=== PATIENT | male | born 1940 | race Caucasian/White ===

== ENCOUNTER → 2016-05-09 | Outpatient (CLI) | payer MEDICARE, OTHER ==
[2016-05-09 18:44] LABS: ALBUMIN 3.8 GM/DL (3.2-5.2); ALBUMIN/GLOBULIN RATIO 1.12 (1.00-1.93); BILIRUBIN,DIRECT 0.2 MG/DL (0.0-0.2); BILIRUBIN,TOTAL 0.6 MG/DL (0.2-1.0); TOTAL PROTEIN 7.2 GM/DL (6.4-8.2)
== END ==
LOC: M WUC 13:41
PROVIDERS: ATTEND Internal Medicine Gastroenterology
DX: R74.8 Abnormal levels of other serum enzymes (principal)

== ENCOUNTER → 2016-07-28 | Outpatient (CLI) | payer MEDICARE, OTHER ==
[2016-07-28 13:44] LABS: MEAN CORPUSCULAR HGB CONC 33.5 g/dl (32.0-36.5); MEAN CORPUSCULAR VOLUME 98.7 fl (80.0-96.0); RED CELL DISTRIBUTION WIDTH 12.9 % (11.5-14.5); WHITE BLOOD COUNT 3.7 K/mm3 (4.0-10.0)
[2016-07-28 14:40] LABS: ALKALINE PHOSPHATASE 71 U/L (45-117); ALT/SGPT 43 U/L (12-78); ANION GAP 5 MEQ/L (8-16); AST/SGOT 40 U/L (15-37); BILIRUBIN,TOTAL 0.6 MG/DL (0.2-1.0); BLOOD UREA NITROGEN 18 MG/DL (7-18); CALCIUM LEVEL 8.6 MG/DL (8.8-10.2); CARBON DIOXIDE LEVEL 31 MEQ/L (21-32); CHLORIDE LEVEL 106 MEQ/L (98-107); CREATININE FOR GFR 0.91 MG/DL (0.70-1.30); GLOMERULAR FILTRATION RATE > 60.0 (>42); GLUCOSE, FASTING 95 MG/DL (83-110); PHOSPHORUS LEVEL 3.7 MG/DL (2.5-4.9); POTASSIUM SERUM 4.5 MEQ/L (3.5-5.1); SODIUM LEVEL 142 MEQ/L (136-145)
[2016-07-28 14:41] LABS: ALBUMIN 3.7 GM/DL (3.2-5.2); ALBUMIN/GLOBULIN RATIO 1.19 (1.00-1.93); BILIRUBIN,DIRECT 0.1 MG/DL (0.0-0.2); CHOLESTEROL LEVEL 195 MG/DL (<200); TOTAL PROTEIN 6.8 GM/DL (6.4-8.2); TRIGLYCERIDES LEVEL 65 MG/DL (<150)
== END ==
LOC: M WUC 09:41
PROVIDERS: ATTEND Nurse Practitioner Family
DX: I25.10 Atherosclerotic heart disease of native coronary artery without angina pectoris (principal); I11.9 Hypertensive heart disease without heart failure; E78.2 Mixed hyperlipidemia

== ENCOUNTER → 2016-08-04 | Outpatient (CLI) | payer MEDICARE, OTHER ==
--- NOTE | 2016-08-04 10:55 | REP ---
MRCP: MRCP exam is accomplished utilizing multiple heavily T2-weighted sequences in the axial and coronal planes. MIP reconstruction images are performed. The gallbladder demonstrates no definite filling defect. There is no intrahepatic or extrahepatic biliary dilatation. The maximum diameter of the common bile duct is 4 mm. I see no evidence of stricture or filling defect in the common bile duct. The pancreatic duct is normal in caliber. No suspicious mass is seen in the visualized abdomen and there is no evidence of free fluid. There are peripelvic cysts in both kidneys as well as a cortical cyst in the lower pole of the right kidney, which measures approximately 2.8 cm in diameter. IMPRESSION: No biliary abnormality detected. Bilateral renal cysts. Signed by Heladio Phelps MD 08/04/2016 04:24 P
== END ==
LOC: M RAD 09:32
PROVIDERS: ATTEND Internal Medicine Gastroenterology
DX: R74.8 Abnormal levels of other serum enzymes (principal)

== ENCOUNTER → 2016-09-15 | Outpatient (CLI) | payer MEDICARE, OTHER ==
--- NOTE | 2016-09-15 15:22 | REP ---
Left hand four views: There is no fracture or dislocation. Mineralization is normal. 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 There are no calcifications or foreign bodies. Signed by Heladio Alvarez MD 09/15/2016 03:13 P
== END ==
LOC: M LRY 14:33
PROVIDERS: ATTEND Physician Assistant
DX: S63.259D Unspecified dislocation of unspecified finger, subsequent encounter (principal); X58.XXXA Exposure to other specified factors, initial encounter; Y92.89 Other specified places as the place of occurrence of the external cause; Y93.89 Activity, other specified; Y99.8 Other external cause status
CPT/HCPCS: 73130; G0463

== ENCOUNTER → 2016-09-29 | Outpatient (CLI) | payer MEDICARE, OTHER ==
--- NOTE | 2016-09-29 16:43 | REP ---
MRI LEFT HAND: Multiple sequences obtained in the axial, coronal and sagittal planes with images centered at the 4th digit. The patient has had prior dislocation at the metacarpophalangeal joint. There is arthritic change at the joint between the trapezium and base of 1st metacarpal with subchondral marrow edema and cystic changes. Small subchondral cyst is seen in the distal aspect of the first proximal phalanx. I do not see any other significant abnormal bone marrow signal. There is no occult fracture. There is no current dislocation. The flexor and extensor tendons of the 4th digit are intact without significant tenosynovitis. The collateral ligaments of the 4th digit appear intact. No fluid collection or ganglion cyst is seen. IMPRESSION: No evidence of tendon or ligament tear. No occult fracture. Scattered arthritic changes. Signed by Heladio Phelps MD 09/30/2016 05:03 P
== END ==
LOC: M RAD 13:15
PROVIDERS: ATTEND Internal Medicine Gastroenterology
DX: S61.412D Laceration without foreign body of left hand, subsequent encounter (principal); S63.259D Unspecified dislocation of unspecified finger, subsequent encounter; X58.XXXA Exposure to other specified factors, initial encounter; Y92.89 Other specified places as the place of occurrence of the external cause; Y93.89 Activity, other specified; Y99.8 Other external cause status

== ENCOUNTER → 2016-11-26 | Outpatient (REF) | payer MEDICARE, OTHER ==
[2016-11-26 13:57] LABS: PERCENT SATURATION 37.7 % (19.7-50.0)
== END ==
LOC: M LAB REF 12:47 → M LABWUC 12:47
PROVIDERS: ATTEND Internal Medicine Gastroenterology
DX: R74.8 Abnormal levels of other serum enzymes (principal)

== ENCOUNTER → 2016-11-26 | Outpatient (REF) | payer MEDICARE, OTHER ==
[2016-11-26 13:30] LABS: MEAN CORPUSCULAR HEMOGLOBIN 32.6 pg (27.0-33.0); MEAN CORPUSCULAR HGB CONC 33.1 g/dl (32.0-36.5); MEAN CORPUSCULAR VOLUME 98.4 fl (80.0-96.0); RED CELL DISTRIBUTION WIDTH 12.9 % (11.5-14.5); WHITE BLOOD COUNT 4.4 10^3/uL (4.0-10.0)
[2016-11-26 13:57] LABS: ALBUMIN 3.9 GM/DL (3.2-5.2); ALBUMIN/GLOBULIN RATIO 1.18 (1.00-1.93); ALKALINE PHOSPHATASE 77 U/L (45-117); ALT/SGPT 149 U/L (12-78); ANION GAP 6 MEQ/L (8-16); AST/SGOT 127 U/L (15-37); BILIRUBIN,DIRECT 0.2 MG/DL (0.0-0.2); BILIRUBIN,TOTAL 0.6 MG/DL (0.2-1.0); BLOOD UREA NITROGEN 20 MG/DL (7-18); CALCIUM LEVEL 8.8 MG/DL (8.8-10.2); CARBON DIOXIDE LEVEL 31 MEQ/L (21-32); CHLORIDE LEVEL 104 MEQ/L (98-107); CHOLESTEROL LEVEL 176 MG/DL (<200); CREATININE FOR GFR 0.85 MG/DL (0.70-1.30); GLOMERULAR FILTRATION RATE > 60.0 (>42); GLUCOSE, FASTING 101 MG/DL (83-110); PHOSPHORUS LEVEL 3.7 MG/DL (2.5-4.9); POTASSIUM SERUM 4.5 MEQ/L (3.5-5.1); SODIUM LEVEL 141 MEQ/L (136-145); TOTAL PROTEIN 7.2 GM/DL (6.4-8.2); TRIGLYCERIDES LEVEL 57 MG/DL (<150)
== END ==
LOC: M LABWUC 12:41 → M LAB REF 12:41
PROVIDERS: ATTEND Nurse Practitioner Family
DX: I11.9 Hypertensive heart disease without heart failure (principal); I25.10 Atherosclerotic heart disease of native coronary artery without angina pectoris; E78.2 Mixed hyperlipidemia; R74.8 Abnormal levels of other serum enzymes

== ENCOUNTER → 2016-12-20 | Outpatient (REF) | payer MEDICARE, OTHER | LOC: M SFHCLERA 15:30 | PROVIDERS: ATTEND Physician Assistant | DX: N52.9 Male erectile dysfunction, unspecified (principal) | CPT/HCPCS: 84402; 84403; G0103; G0463 ==

== ENCOUNTER → 2017-01-19 | Outpatient (CLI) | payer MEDICARE, OTHER ==
[2017-01-19 11:48] LABS: ALBUMIN 3.8 GM/DL (3.2-5.2); ALBUMIN/GLOBULIN RATIO 1.09 (1.00-1.93); BILIRUBIN,DIRECT 0.1 MG/DL (0.0-0.2); BILIRUBIN,TOTAL 0.4 MG/DL (0.2-1.0); TOTAL PROTEIN 7.3 GM/DL (6.4-8.2)
== END ==
LOC: M LRY 09:30
PROVIDERS: ATTEND Nurse Practitioner Family
DX: E78.2 Mixed hyperlipidemia (principal); R94.5 Abnormal results of liver function studies

== ENCOUNTER → 2017-03-09 | Outpatient (CLI) | payer MEDICARE, OTHER | LOC: M LRY 09:16 | DX: R94.5 Abnormal results of liver function studies (principal) | CPT/HCPCS: 36415; 80076 ==

== ENCOUNTER → 2017-03-09 | Outpatient (REF) | payer MEDICARE, OTHER ==
[2017-03-09 12:49] LABS: ALBUMIN 3.8 GM/DL (3.2-5.2); ALBUMIN/GLOBULIN RATIO 1.06 (1.00-1.93); ALKALINE PHOSPHATASE 114 U/L (45-117); ALT/SGPT 101 U/L (12-78); AST/SGOT 93 U/L (7-37); BILIRUBIN,DIRECT 0.2 MG/DL (0.0-0.2); BILIRUBIN,TOTAL 0.7 MG/DL (0.2-1.0); CHOLESTEROL LEVEL 183 MG/DL (<200); CHOLESTEROL RISK RATIO 2.259 (<5); HDL CHOLESTEROL 81 MG/DL (>40); NON-HDL-C 102 MG/DL; TOTAL PROTEIN 7.4 GM/DL (6.4-8.2); TRIGLYCERIDES LEVEL 75 MG/DL (<150)
== END ==
LOC: M SFHCLERA 09:15
DX: R94.5 Abnormal results of liver function studies (principal); E78.2 Mixed hyperlipidemia
CPT/HCPCS: 80076

== ENCOUNTER 2017-07-09 21:17 | Emergency (ER) | payer MEDICARE, OTHER ==
[2017-07-09 22:04] LABS: BASO % 0.5 % (0.0-1.0); EOS # 0.2 10^3/uL (0.0-0.50); EOS % 3.8 % (0.0-3.0); HEMATOCRIT 43.5 % (42.0-52.0); HEMOGLOBIN 14.7 g/dl (13.5-17.5); IMMATURE GRANULOCYTE % 0.3 % (0-3.0); LYMPH # 1.5 10^3/uL (1.5-4.5); LYMPH % 24.4 % (24.0-44.0); MEAN CORPUSCULAR HEMOGLOBIN 32.6 pg (27.0-33.0); MEAN CORPUSCULAR HGB CONC 33.8 g/dl (32.0-36.5); MEAN CORPUSCULAR VOLUME 96.5 fl (80.0-96.0); MONO # 0.7 10^3/uL (0.0-0.8); MONO % 10.4 % (0.0-5.0); NEUTROPHILS # 3.8 10^3/uL (1.8-7.7); NEUTROPHILS % 60.6 % (36.0-66.0); PLATELET COUNT, AUTOMATED 152 10^3/uL (150-450); RED BLOOD COUNT 4.51 10^6/uL (4.30-6.10); RED CELL DISTRIBUTION WIDTH 13.2 % (11.5-14.5); WHITE BLOOD COUNT 6.3 10^3/uL (4.0-10.0)
[2017-07-09 22:15] LABS: ANION GAP 10 MEQ/L (8-16); BLOOD UREA NITROGEN 20 MG/DL (7-18); CALCIUM LEVEL 8.7 MG/DL (8.8-10.2); CARBON DIOXIDE LEVEL 27 MEQ/L (21-32); CHLORIDE LEVEL 107 MEQ/L (98-107); CPK CREATINE PHOSPHOKINASE 145 U/L (39-308); CREATININE FOR GFR 0.89 MG/DL (0.70-1.30); GLOMERULAR FILTRATION RATE > 60.0 (>42); GLUCOSE, FASTING 104 MG/DL (70-100); MAGNESIUM LEVEL 2.4 MG/DL (1.8-2.4); POTASSIUM SERUM 4.1 MEQ/L (3.5-5.1); SODIUM LEVEL 144 MEQ/L (136-145); TROPONIN I < 0.02 NG/ML (< 0.10)
[2017-07-09 22:21] LABS: CK-MB VALUE MASS 1.5 NG/ML (<3.6); MB/CK RELATIVE INDEX 1.03 (< OR =4)
[2017-07-09] MEDS: NS 500 ML IV (22:28)
[2017-07-10 00:15] LABS: KETONE, URINE AUTO RFX 1+ mg/dL (NEGATIVE); LEUKOCYTE ESTERASE UR AUTO RFX NEGATIVE (NEGATIVE); MUCUS, URINE RFX SMALL (NEGATIVE); NITRITE, URINE AUTO RFX NEGATIVE (NEGATIVE); RBC, URINE AUTO RFX 3 /HPF (0-3); SPECIFIC GRAVITY UR AUTO RFX 1.018 (1.002-1.035); SQUAM EPITHELIAL CELL UR AURFX 0 /HPF (0-6); WBC, URINE AUTO RFX 2 /HPF (0-3)
[2017-07-10 00:37] LABS: LACTIC ACID SEPSIS PROTOCOL 2.5 MMOL/L (0.4-2.0)
[2017-07-10] MEDS: NS 500 ML IV (00:42)
== END 2017-07-10 01:44 | disposition home or self-care (01) ==
LOC: M ED 21:17
DX: I95.1 Orthostatic hypotension (principal); I25.2 Old myocardial infarction; I10 Essential (primary) hypertension; Z98.61 Coronary angioplasty status; Z95.5 Presence of coronary angioplasty implant and graft; Z72.0 Tobacco use; Z79.82 Long term (current) use of aspirin; Z79.899 Other long term (current) drug therapy; Z91.041 Radiographic dye allergy status
CPT/HCPCS: 71045

== ENCOUNTER → 2017-09-11 | Outpatient (REF) | payer MEDICARE, OTHER ==
[2017-09-11 12:47] LABS: HEMATOCRIT 40.5 % (42.0-52.0); HEMOGLOBIN 13.6 g/dl (13.5-17.5); MEAN CORPUSCULAR HEMOGLOBIN 32.5 pg (27.0-33.0); MEAN CORPUSCULAR HGB CONC 33.6 g/dl (32.0-36.5); MEAN CORPUSCULAR VOLUME 96.9 fl (80.0-96.0); PLATELET COUNT, AUTOMATED 167 10^3/uL (150-450); RED BLOOD COUNT 4.18 10^6/uL (4.30-6.10); RED CELL DISTRIBUTION WIDTH 13.2 % (11.5-14.5); WHITE BLOOD COUNT 4.7 10^3/uL (4.0-10.0)
[2017-09-11 13:22] LABS: ALBUMIN 3.9 GM/DL (3.2-5.2); ALBUMIN/GLOBULIN RATIO 1.18 (1.00-1.93); ALKALINE PHOSPHATASE 61 U/L (45-117); ALT/SGPT 26 U/L (12-78); ANION GAP 7 MEQ/L (8-16); AST/SGOT 24 U/L (7-37); BILIRUBIN,TOTAL 0.7 MG/DL (0.2-1.0); BLOOD UREA NITROGEN 15 MG/DL (7-18); CALCIUM LEVEL 8.7 MG/DL (8.8-10.2); CARBON DIOXIDE LEVEL 30 MEQ/L (21-32); CHLORIDE LEVEL 107 MEQ/L (98-107); CHOLESTEROL LEVEL 187 MG/DL (<200); CHOLESTEROL RISK RATIO 2.174 (<5); CREATININE FOR GFR 0.85 MG/DL (0.70-1.30); GLOMERULAR FILTRATION RATE > 60.0 (>42); GLUCOSE, FASTING 106 MG/DL (70-100); HDL CHOLESTEROL 86 MG/DL (>40); LDL CHOLESTEROL 85.6 MG/DL (<100); NON-HDL-C 101 MG/DL; POTASSIUM SERUM 4.7 MEQ/L (3.5-5.1); SODIUM LEVEL 144 MEQ/L (136-145); TOTAL PROTEIN 7.2 GM/DL (6.4-8.2); TRIGLYCERIDES LEVEL 77 MG/DL (<150)
== END ==
LOC: M SFHCLERA 08:38
DX: I10 Essential (primary) hypertension (principal); I25.10 Atherosclerotic heart disease of native coronary artery without angina pectoris
CPT/HCPCS: 80053

== ENCOUNTER → 2017-09-13 | Outpatient (CLI) | payer MEDICARE, OTHER ==
[2017-09-13 13:41] LABS: RETICULOCYTE # 52.7 10^9/L (17-77); RETICULOCYTE % 1.2 % (0.5-1.5)
[2017-09-13 14:09] LABS: FERRITIN 98 NG/ML (26-388); FREE T4 0.78 NG/DL (0.76-1.46); IRON (FE) 132 UG/DL (65-175); PERCENT SATURATION 43.6 % (19.7-50.0); TOTAL IRON BINDING CAPACITY 303 UG/DL (250-450)
[2017-09-13 14:44] LABS: VITAMIN B12 LEVEL 657 PG/ML (247-911)
[2017-09-13 14:46] LABS: FOLATE 21.3 NG/ML (>5.4)
[2017-09-13 15:24] LABS: HEP C VIRUS AB SCREEN MEDICARE 0.3 INDEX (<0.8)
[2017-09-13 15:25] LABS: HIV 1&2 SCREEN CENTAUR NEGATIVE (NEGATIVE)
== END ==
LOC: M SMT 11:39
DX: D53.9 Nutritional anemia, unspecified (principal); R79.89 Other specified abnormal findings of blood chemistry; Z11.4 Encounter for screening for human immunodeficiency virus [HIV]; Z11.59 Encounter for screening for other viral diseases
CPT/HCPCS: 82746

== ENCOUNTER → 2017-11-07 | Outpatient (CLI) | payer MEDICARE, OTHER ==
[2017-11-07 14:43] LABS: TOTAL PROTEIN 7.4 GM/DL (6.4-8.2)
[2017-11-09 00:07] LABS: FREE KAPPA LIGHT CHAINS SERUM 19.1 mg/L (3.3-19.4); FREE LAMBDA LIGHT CHAINS SERUM 16.1 mg/L (5.7-26.3); KAPPA/LAMBDA RATIO SERUM 1.19 (0.26-1.65)
[2017-11-09 11:28] LABS: ALBUMIN 4.55 GM/DL (3.29-5.55); ALBUMIN % 61.5 % (55.8-66.1); ALPHA-1-GLOBULIN % 3.6 % (2.9-4.9); ALPHA-2-GLOBULINS % 8.4 % (7.1-11.8); BETA-1-GLOBULINS % 5.7 % (4.7-7.2); BETA-2-GLOBULINS % 4.8 % (3.2-6.5)
[2017-11-09 11:29] LABS: ALPHA-1-GLOBULINS 0.27 GM/DL (0.17-0.41); ALPHA-2-GLOBULINS 0.62 GM/DL (0.42-0.99); BETA-1-GLOBULINS 0.42 GM/DL (0.28-0.60); BETA-2-GLOBULINS 0.36 GM/DL (0.19-0.55); GAMMA GLOBULINS 1.18 GM/DL (0.65-1.58)
== END ==
LOC: M SMT 10:18
DX: D53.9 Nutritional anemia, unspecified (principal)
CPT/HCPCS: 84165

== ENCOUNTER → 2018-03-27 | Outpatient (CLI) | payer MEDICARE, OTHER ==
[~2018-03-27] MED LIST: AMLO2.5T3 PO; ASPI81TA24 PO; ATOR40TA75 PO; CARV6.25 PO; LISI-538 PO; REFR0.5D8 OU; VIAG100T PO
--- NOTE | 2018-03-27 11:00 | REP ---
Right knee series: Five views. History: Injury. Findings: Five views of the right knee demonstrate soft tissue swelling anterolaterally about the patella. On sunrise and oblique radiograph, there is a radiolucent defect in the lateral patellar cortex which may be a chip fracture. This should be correlated with mechanism injury and area of tenderness to palpation. No other fracture is seen. There is evidence of a small effusion on lateral radiograph. Mild patellar spurring is seen. There is dystrophic soft-tissue calcification adjacent to the proximal fibula. Vascular calcification is also noted. A normal fabella is seen posterolaterally. Impression: Patellar spurring. Dystrophic calcification in the proximal calf adjacent to the proximal fibula. Possible joint effusion. Oblique and sunrise view suggest a lateral patellar chip fracture. This should be correlated with mechanism of injury and area of tenderness to palpation on exam. Electronically Signed by Jono Pryor MD 03/27/2018 08:31 P
== END ==
LOC: M LRY 10:13
PROVIDERS: ATTEND Nurse Practitioner Family
DX: R93.89 Abnormal findings on diagnostic imaging of other specified body structures (principal); M25.761 Osteophyte, right knee; S89.91XA Unspecified injury of right lower leg, initial encounter; W00.0XXA Fall on same level due to ice and snow, initial encounter; W22.8XXA Striking against or struck by other objects, initial encounter; Y92.89 Other specified places as the place of occurrence of the external cause
CPT/HCPCS: 73564; G0463

== ENCOUNTER → 2018-04-25 | Outpatient (CLI) | payer MEDICARE, OTHER ==
[2018-04-25 10:59] LABS: BASO % 0.7 % (0.0-1.0); EOS # 0.3 10^3/uL (0.0-0.50); EOS % 6.1 % (0.0-3.0); HEMOGLOBIN 14.5 g/dl (13.5-17.5); LYMPH # 1.2 10^3/uL (1.5-4.5); LYMPH % 21.4 % (24.0-44.0); MEAN CORPUSCULAR HEMOGLOBIN 32.3 pg (27.0-33.0); MONO # 0.7 10^3/uL (0.0-0.8); MONO % 12.1 % (0.0-5.0); NEUTROPHILS # 3.3 10^3/uL (1.8-7.7); NEUTROPHILS % 59.2 % (36.0-66.0); PLATELET COUNT, AUTOMATED 156 10^3/uL (150-450); RED BLOOD COUNT 4.49 10^6/uL (4.30-6.10); WHITE BLOOD COUNT 5.6 10^3/uL (4.0-10.0)
== END ==
LOC: M SMT 09:10
PROVIDERS: ATTEND Physician Assistant
DX: D53.9 Nutritional anemia, unspecified (principal)

== ENCOUNTER → 2018-08-19 | Outpatient (CLI) | payer MEDICARE, OTHER ==
[2018-08-22 00:09] LABS: Lyme Disease IgG/IgM Antibodie <0.91 ISR (0.00-0.90); Lyme Disease IgM Ab Quantitati <0.80 index (0.00-0.79)
== END ==
LOC: M WUC 13:45
PROVIDERS: ATTEND Physician Assistant
DX: M25.50 Pain in unspecified joint (principal)

== ENCOUNTER → 2018-10-02 | Outpatient (CLI) | payer MEDICARE, OTHER ==
[2018-10-02 13:37] LABS: HEMATOCRIT 43.7 % (42.0-52.0); HEMOGLOBIN 14.4 g/dl (13.5-17.5); MEAN CORPUSCULAR HEMOGLOBIN 32.9 pg (27.0-33.0); MEAN CORPUSCULAR VOLUME 99.8 fl (80.0-96.0); PLATELET COUNT, AUTOMATED 149 10^3/uL (150-450); RED BLOOD COUNT 4.38 10^6/uL (4.30-6.10); WHITE BLOOD COUNT 3.9 10^3/uL (4.0-10.0)
[2018-10-02 13:51] LABS: ALBUMIN 4.1 GM/DL (3.2-5.2); ALT/SGPT 24 U/L (12-78); BILIRUBIN,TOTAL 0.7 MG/DL (0.2-1.0); BLOOD UREA NITROGEN 16 MG/DL (7-18); CARBON DIOXIDE LEVEL 31 MEQ/L (21-32); CHLORIDE LEVEL 108 MEQ/L (98-107); CHOLESTEROL LEVEL 211 MG/DL (<200); CHOLESTEROL RISK RATIO 2.221 (<5); CREATININE FOR GFR 0.87 MG/DL (0.70-1.30); FREE T4 0.74 NG/DL (0.76-1.46); GLOMERULAR FILTRATION RATE > 60.0 (>42); GLUCOSE, FASTING 86 MG/DL (70-100); HDL CHOLESTEROL 95 MG/DL (>40); LDL CHOLESTEROL 100 MG/DL (<100); NON-HDL-C 116 MG/DL; POTASSIUM SERUM 4.2 MEQ/L (3.5-5.1); SODIUM LEVEL 144 MEQ/L (136-145); TOTAL PROTEIN 7.1 GM/DL (6.4-8.2); TRIGLYCERIDES LEVEL 81 MG/DL (<150)
[2018-10-02 14:13] LABS: MALB URINE SIEMENS 20.3 MG/L; MAU/CREAT RATIO 18.7 MCG/MG (0.0-30.0)
== END ==
LOC: M SMT 09:25
PROVIDERS: ATTEND Physician Assistant
DX: Z12.5 Encounter for screening for malignant neoplasm of prostate (principal); I10 Essential (primary) hypertension; E78.2 Mixed hyperlipidemia
CPT/HCPCS: 36415; 80053; 80061; 82043; 84439; 84443; 85027; G0103

== ENCOUNTER → 2019-01-31 | Outpatient (CLI) | payer MEDICARE, OTHER ==
--- NOTE | 2019-01-31 10:58 | REP ---
Right knee series: Six views. History: Injury to the right knee. Injury in a fall 2 days prior. Swelling and decreased range of motion. Comparison study March 27, 2018. Findings: [place] view demonstrates a minimally displaced lateral patellar fracture with 1 mm of step-off and mild diastases. This lateral patellar fracture fragment appears larger than the similar lateral patellar fracture observed March 27, 2018. This is most compatible with a recurrent lateral patellar chip fracture. In any event, the 1 mm step-off is new. There is prepatellar soft-tissue swelling and there is evidence of a large joint effusion. There is superior pole nonarticular spurring of the patella. No femoral tibial or fibular fracture is appreciated. There is a large fabella posterolaterally. There is old post-traumatic soft tissue calcification adjacent to the proximal fibular diaphysis which is unchanged. Some vascular calcifications noted. 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 Electronically Signed by Jono Pryor MD 01/31/2019 01:07 P
== END ==
LOC: M LRY 09:38
PROVIDERS: ATTEND Physician Assistant
DX: S89.91XA Unspecified injury of right lower leg, initial encounter (principal); W19.XXXA Unspecified fall, initial encounter; Y92.9 Unspecified place or not applicable
CPT/HCPCS: 73564; G0463

== ENCOUNTER → 2019-02-22 | Outpatient (REF) | payer MEDICARE, OTHER ==
[2019-02-22 11:38] LABS: FERRITIN 141 NG/ML (26-388); IRON (FE) 126 UG/DL (65-175); PERCENT SATURATION 38.9 % (19.7-50.0); TOTAL IRON BINDING CAPACITY 324 UG/DL (250-450)
[2019-02-22 11:47] LABS: VITAMIN B12 LEVEL 678 PG/ML (247-911)
[2019-02-22 11:48] LABS: FOLATE 18.5 NG/ML (>5.4)
[2019-02-22 12:27] LABS: HIV 1&2 SCREEN CENTAUR NEGATIVE (NEGATIVE)
== END ==
LOC: M SFHCLERA 08:06
PROVIDERS: ATTEND Nurse Practitioner Family
DX: D53.9 Nutritional anemia, unspecified (principal); Z11.4 Encounter for screening for human immunodeficiency virus [HIV]; Z11.59 Encounter for screening for other viral diseases
CPT/HCPCS: 82607; 82728; 82746; 83550; 85046; 87389; G0472

== ENCOUNTER → 2019-03-27 | Outpatient (REF) | payer MEDICARE, OTHER ==
[2019-03-27 18:34] LABS: BASO % 0.5 % (0.0-1.0); EOS # 0.3 10^3/uL (0.0-0.5); EOS % 4.7 % (0.0-3.0); HEMATOCRIT 42.7 % (42.0-52.0); HEMOGLOBIN 14.2 g/dl (13.5-17.5); LYMPH % 16.6 % (24.0-44.0); MEAN CORPUSCULAR HEMOGLOBIN 32.8 pg (27.0-33.0); MEAN CORPUSCULAR HGB CONC 33.3 g/dl (32.0-36.5); MEAN CORPUSCULAR VOLUME 98.6 fl (80.0-96.0); MONO # 0.7 10^3/uL (0.0-0.8); MONO % 10.9 % (0.0-5.0); PLATELET COUNT, AUTOMATED 173 10^3/uL (150-450); RED BLOOD COUNT 4.33 10^6/uL (4.30-6.10)
[2019-03-27 18:44] LABS: ALBUMIN 4.1 GM/DL (3.2-5.2); ALT/SGPT 23 U/L (12-78); BILIRUBIN,TOTAL 0.6 MG/DL (0.2-1.0); BLOOD UREA NITROGEN 18 MG/DL (7-18); CALCIUM LEVEL 9.2 MG/DL (8.8-10.2); CARBON DIOXIDE LEVEL 33 MEQ/L (21-32); CHLORIDE LEVEL 106 MEQ/L (98-107); CHOLESTEROL LEVEL 225 MG/DL (<200); CHOLESTEROL RISK RATIO 2.848 (<5); CREATININE FOR GFR 0.88 MG/DL (0.70-1.30); GLOMERULAR FILTRATION RATE > 60.0 (>42); GLUCOSE, FASTING 91 MG/DL (70-100); HDL CHOLESTEROL 79 MG/DL (>40); LDL CHOLESTEROL 129 MG/DL (<100); NON-HDL-C 146 MG/DL; POTASSIUM SERUM 4.1 MEQ/L (3.5-5.1); SODIUM LEVEL 143 MEQ/L (136-145); TOTAL PROTEIN 7.5 GM/DL (6.4-8.2); TRIGLYCERIDES LEVEL 84 MG/DL (<150)
[2019-03-27 18:59] LABS: MALB URINE SIEMENS 9.7 MG/L; MAU/CREAT RATIO 7.4 MCG/MG (0.0-30.0)
[2019-03-27 19:11] LABS: HEMOGLOBIN A1c 5.5 %
== END ==
LOC: M SFHCLERA 10:50
PROVIDERS: ATTEND Nurse Practitioner Family
DX: E78.2 Mixed hyperlipidemia (principal); D53.9 Nutritional anemia, unspecified; R79.89 Other specified abnormal findings of blood chemistry; Z12.5 Encounter for screening for malignant neoplasm of prostate; Z13.1 Encounter for screening for diabetes mellitus; H61.21 Impacted cerumen, right ear
CPT/HCPCS: 69209; 80053; 80061; 82043; 83036; 84439; 84443; 85025; G0103; G0463

== ENCOUNTER → 2019-07-08 | Outpatient (CLI) | payer MEDICARE, OTHER ==
[2019-07-08 17:39] LABS: THYROID STIMULATING HORMONE 1.65 uIU/ML (0.358-3.740)
[2019-07-08 17:41] LABS: FOLATE 12.1 NG/ML
[2019-07-14 00:06] LABS: VITAMIN B1 LEVEL WHOLE BLOOD 121.6 nmol/L (66.5-200.0); VITAMIN B6,PYRIDOXAL PHOSPHATE 10.9 ug/L (5.3-46.7); VITAMIN E(ALPHA TOCOPHEROL) 12.6 mg/L (9.0-29.0); VITAMIN E(GAMMA TOCOPHEROL) 0.7 mg/L (0.5-4.9)
== END ==
LOC: M LRY 13:26
PROVIDERS: ATTEND Psychiatry & Neurology Neurology
DX: E53.8 Deficiency of other specified B group vitamins (principal); E03.9 Hypothyroidism, unspecified; R41.3 Other amnesia; E51.9 Thiamine deficiency, unspecified

== ENCOUNTER → 2019-11-14 | Outpatient (CLI) | payer MEDICARE, OTHER ==
[2019-11-14 13:08] LABS: EOS # 0.3 10^3/uL (0.0-0.5); EOS % 5.9 % (0.0-3.0); HEMATOCRIT 42.5 % (42.0-52.0); HEMOGLOBIN 14.3 g/dl (13.5-17.5); LYMPH % 24.2 % (24.0-44.0); MEAN CORPUSCULAR HEMOGLOBIN 32.7 pg (27.0-33.0); MEAN CORPUSCULAR HGB CONC 33.6 g/dl (32.0-36.5); MEAN CORPUSCULAR VOLUME 97.3 fl (80.0-96.0); MONO # 0.6 10^3/uL (0.0-0.8); MONO % 13.3 % (0.0-5.0); NEUTROPHILS # 2.3 10^3/uL (1.5-8.5); NEUTROPHILS % 55.4 % (36.0-66.0); PLATELET COUNT, AUTOMATED 183 10^3/uL (150-450); RED BLOOD COUNT 4.37 10^6/uL (4.30-6.10); WHITE BLOOD COUNT 4.2 10^3/uL (4.0-10.0)
[2019-11-14 13:15] LABS: ALBUMIN 4.3 GM/DL (3.2-5.2); ALT/SGPT 24 U/L (12-78); BILIRUBIN,TOTAL 0.7 MG/DL (0.2-1.0); BLOOD UREA NITROGEN 28 MG/DL (7-18); CALCIUM LEVEL 9.4 MG/DL (8.8-10.2); CARBON DIOXIDE LEVEL 31 MEQ/L (21-32); CHLORIDE LEVEL 102 MEQ/L (98-107); CHOLESTEROL LEVEL 267 MG/DL (<200); CHOLESTEROL RISK RATIO 2.966 (<5); CREATININE FOR GFR 0.98 MG/DL (0.70-1.30); GLOMERULAR FILTRATION RATE > 60.0 (>42); GLUCOSE, FASTING 98 MG/DL (70-100); HDL CHOLESTEROL 90 MG/DL (>40); LDL CHOLESTEROL 158 MG/DL (<100); NON-HDL-C 177 MG/DL; POTASSIUM SERUM 4.5 MEQ/L (3.5-5.1); SODIUM LEVEL 139 MEQ/L (136-145); TOTAL PROTEIN 7.5 GM/DL (6.4-8.2); TRIGLYCERIDES LEVEL 96 MG/DL (<150)
[2019-11-14 13:42] LABS: HEMOGLOBIN A1c 5.2 %; MALB URINE SIEMENS 7.2 MG/L; MAU/CREAT RATIO 5.3 MCG/MG (0.0-30.0)
== END ==
LOC: M WUC 10:26
PROVIDERS: ATTEND Nurse Practitioner Family
DX: E78.2 Mixed hyperlipidemia (principal); I10 Essential (primary) hypertension; H35.62 Retinal hemorrhage, left eye; Z13.1 Encounter for screening for diabetes mellitus; Z12.5 Encounter for screening for malignant neoplasm of prostate; Z79.899 Other long term (current) drug therapy
CPT/HCPCS: 36415; 80053; 80061; 82043; 83036; 85025; G0103

== ENCOUNTER → 2019-11-14 | Outpatient (CLI) | payer MEDICARE, OTHER ==
[2019-11-14 13:08] LABS: BLOOD UREA NITROGEN 29 MG/DL (7-18); CALCIUM LEVEL 9.5 MG/DL (8.8-10.2); CARBON DIOXIDE LEVEL 32 MEQ/L (21-32); CHLORIDE LEVEL 101 MEQ/L (98-107); CREATININE FOR GFR 0.95 MG/DL (0.70-1.30); GLOMERULAR FILTRATION RATE > 60.0 (>42); GLUCOSE, FASTING 95 MG/DL (70-100); POTASSIUM SERUM 4.4 MEQ/L (3.5-5.1); SODIUM LEVEL 136 MEQ/L (136-145)
== END ==
LOC: M WUC 10:32
PROVIDERS: ATTEND Nurse Practitioner Family
DX: I10 Essential (primary) hypertension (principal)

== ENCOUNTER → 2019-11-14 | Outpatient (CLI) | payer MEDICARE, OTHER ==
[2019-11-14 13:05] LABS: BASO % 0.9 % (0.0-1.0); EOS # 0.2 10^3/uL (0.0-0.5); EOS % 5.1 % (0.0-3.0); HEMATOCRIT 43.3 % (42.0-52.0); HEMOGLOBIN 14.4 g/dl (13.5-17.5); LYMPH # 1.1 10^3/uL (1.5-5.0); LYMPH % 24.4 % (24.0-44.0); MEAN CORPUSCULAR HEMOGLOBIN 32.4 pg (27.0-33.0); MEAN CORPUSCULAR HGB CONC 33.3 g/dl (32.0-36.5); MEAN CORPUSCULAR VOLUME 97.5 fl (80.0-96.0); MONO # 0.6 10^3/uL (0.0-0.8); NEUTROPHILS # 2.4 10^3/uL (1.5-8.5); NEUTROPHILS % 55.9 % (36.0-66.0); PLATELET COUNT, AUTOMATED 179 10^3/uL (150-450); RED BLOOD COUNT 4.44 10^6/uL (4.30-6.10); WHITE BLOOD COUNT 4.3 10^3/uL (4.0-10.0)
== END ==
LOC: M WUC 10:38
PROVIDERS: ATTEND Ophthalmology Retina Specialist
DX: H35.62 Retinal hemorrhage, left eye (principal)

== ENCOUNTER → 2020-03-03 | Outpatient (CLI) | payer MEDICARE, OTHER ==
[2020-03-03 16:50] LABS: ALBUMIN 4.4 GM/DL (3.2-5.2); ALT/SGPT 26 U/L (12-78); BILIRUBIN,TOTAL 0.7 MG/DL (0.2-1.0); BLOOD UREA NITROGEN 18 MG/DL (7-18); CALCIUM LEVEL 9.2 MG/DL (8.8-10.2); CARBON DIOXIDE LEVEL 32 MEQ/L (21-32); CHLORIDE LEVEL 102 MEQ/L (98-107); CHOLESTEROL LEVEL 181 MG/DL (<200); CHOLESTEROL RISK RATIO 1.723 (<5); CREATININE FOR GFR 1.08 MG/DL (0.70-1.30); GLOMERULAR FILTRATION RATE > 60.0 (>42); GLUCOSE, FASTING 108 MG/DL (70-100); HDL CHOLESTEROL 105 MG/DL (>40); LDL CHOLESTEROL 64 MG/DL (<100); NON-HDL-C 76 MG/DL; POTASSIUM SERUM 4.1 MEQ/L (3.5-5.1); SODIUM LEVEL 139 MEQ/L (136-145); TOTAL PROTEIN 7.4 GM/DL (6.4-8.2); TRIGLYCERIDES LEVEL 59 MG/DL (<150)
== END ==
LOC: M WUC 10:27
PROVIDERS: ATTEND Nurse Practitioner Family
DX: I25.10 Atherosclerotic heart disease of native coronary artery without angina pectoris (principal)

== ENCOUNTER → 2020-04-13 | Outpatient (CLI) | payer MEDICARE, OTHER ==
[~2020-04-13] MED LIST changes: -LISI-538 PO; +LISI20TA33 PO
[2020-04-15 13:06] LABS: TESTOSTERONE FREE (DIRECT) 6.4 pg/mL (6.6-18.1)
== END ==
LOC: M WUC 14:16
PROVIDERS: ATTEND Nurse Practitioner Family
DX: N53.19 Other ejaculatory dysfunction (principal)
CPT/HCPCS: 36415; 84402; 84403; G0103

== ENCOUNTER → 2020-09-08 | Outpatient (CLI) | payer MEDICARE, OTHER ==
[2020-09-08 17:45] LABS: HEMATOCRIT 41.2 % (42.0-52.0); HEMOGLOBIN 13.4 g/dl (13.5-17.5); MEAN CORPUSCULAR HEMOGLOBIN 32.3 pg (27.0-33.0); MEAN CORPUSCULAR HGB CONC 32.5 g/dl (32.0-36.5); MEAN CORPUSCULAR VOLUME 99.3 fl (80.0-96.0); PLATELET COUNT, AUTOMATED 171 10^3/uL (150-450); RED BLOOD COUNT 4.15 10^6/uL (4.30-6.10); WHITE BLOOD COUNT 4.8 10^3/uL (4.0-10.0)
[2020-09-08 18:15] LABS: ALBUMIN 3.9 GM/DL (3.2-5.2); ALT/SGPT 24 U/L (12-78); BILIRUBIN,TOTAL 0.5 MG/DL (0.2-1.0); BLOOD UREA NITROGEN 18 MG/DL (7-18); CARBON DIOXIDE LEVEL 32 MEQ/L (21-32); CHLORIDE LEVEL 106 MEQ/L (98-107); CHOLESTEROL LEVEL 151 MG/DL (<200); CHOLESTEROL RISK RATIO 1.641 (<5); CREATININE FOR GFR 0.81 MG/DL (0.70-1.30); GLOMERULAR FILTRATION RATE > 60.0 (>42); GLUCOSE, FASTING 98 MG/DL (70-100); HDL CHOLESTEROL 92 MG/DL (>40); LDL CHOLESTEROL 49 MG/DL (<100); NON-HDL-C 59 MG/DL; POTASSIUM SERUM 4.2 MEQ/L (3.5-5.1); SODIUM LEVEL 142 MEQ/L (136-145); TRIGLYCERIDES LEVEL 48 MG/DL (<150)
== END ==
LOC: M WUC 13:52
PROVIDERS: ATTEND Nurse Practitioner Family
DX: I25.10 Atherosclerotic heart disease of native coronary artery without angina pectoris (principal); E78.49 Other hyperlipidemia

== ENCOUNTER → 2021-09-15 | Outpatient (CLI) | payer MEDICARE, OTHER ==
[2021-09-15 16:14] LABS: BASO % 0.9 % (0.0-1.0); EOS # 0.2 10^3/uL (0.0-0.5); HEMATOCRIT 40.7 % (42.0-52.0); HEMOGLOBIN 13.4 g/dl (13.5-17.5); LYMPH % 22.7 % (24.0-44.0); MEAN CORPUSCULAR HGB CONC 32.9 g/dl (32.0-36.5); MEAN CORPUSCULAR VOLUME 100.2 fl (80.0-96.0); MONO # 0.7 10^3/uL (0.0-0.8); MONO % 14.8 % (2.0-8.0); NEUTROPHILS # 2.6 10^3/uL (1.5-8.5); NEUTROPHILS % 56.9 % (36.0-66.0); PLATELET COUNT, AUTOMATED 169 10^3/uL (150-450); RED BLOOD COUNT 4.06 10^6/uL (4.30-6.10); WHITE BLOOD COUNT 4.5 10^3/uL (4.0-10.0)
[2021-09-15 16:32] LABS: ALBUMIN 3.9 GM/DL (3.2-5.2); ALT/SGPT 26 U/L (12-78); BILIRUBIN,TOTAL 0.6 MG/DL (0.2-1.0); BLOOD UREA NITROGEN 25 MG/DL (7-18); CALCIUM LEVEL 8.9 MG/DL (8.8-10.2); CARBON DIOXIDE LEVEL 32 MEQ/L (21-32); CHLORIDE LEVEL 108 MEQ/L (98-107); CHOLESTEROL LEVEL 142 MG/DL (<200); CREATININE FOR GFR 1.04 MG/DL (0.70-1.30); GLOMERULAR FILTRATION RATE > 60.0 (>42); GLUCOSE, FASTING 91 MG/DL (70-100); HDL CHOLESTEROL 85 MG/DL (>40); LDL CHOLESTEROL 44 MG/DL (<100); NON-HDL-C 57 MG/DL; SODIUM LEVEL 142 MEQ/L (136-145); TOTAL PROTEIN 6.9 GM/DL (6.4-8.2); TRIGLYCERIDES LEVEL 64 MG/DL (<150)
== END ==
LOC: M WUC 11:38
PROVIDERS: ATTEND Student in an Organized Health Care Education/Training Program
DX: E78.2 Mixed hyperlipidemia (principal); I10 Essential (primary) hypertension; Z76.89 Persons encountering health services in other specified circumstances

== ENCOUNTER → 2021-09-16 | Outpatient (CLI) | payer MEDICARE, OTHER | LOC: M WUC 14:10 | PROVIDERS: ATTEND Student in an Organized Health Care Education/Training Program | DX: D53.9 Nutritional anemia, unspecified (principal) ==

== ENCOUNTER → 2021-11-18 | Outpatient (CLI) | payer MEDICARE, OTHER ==
[2021-11-18 12:58] LABS: HEMATOCRIT 41.8 % (42.0-52.0); HEMOGLOBIN 13.8 g/dl (13.5-17.5); MEAN CORPUSCULAR HEMOGLOBIN 32.8 pg (27.0-33.0); MEAN CORPUSCULAR VOLUME 99.3 fl (80.0-96.0); PLATELET COUNT, AUTOMATED 179 10^3/uL (150-450); RED BLOOD COUNT 4.21 10^6/uL (4.30-6.10); WHITE BLOOD COUNT 5.2 10^3/uL (4.0-10.0)
[2021-11-18 13:37] LABS: ALBUMIN 4.1 GM/DL (3.2-5.2); ALT/SGPT 29 U/L (12-78); BILIRUBIN,TOTAL 0.6 MG/DL (0.2-1.0); BLOOD UREA NITROGEN 24 MG/DL (7-18); CARBON DIOXIDE LEVEL 30 MEQ/L (21-32); CHLORIDE LEVEL 103 MEQ/L (98-107); CHOLESTEROL LEVEL 159 MG/DL (<200); CHOLESTEROL RISK RATIO 1.747 (<5); CREATININE FOR GFR 1.01 MG/DL (0.70-1.30); GLOMERULAR FILTRATION RATE > 60.0 (>35); GLUCOSE, FASTING 101 MG/DL (70-100); HDL CHOLESTEROL 91 MG/DL (>40); LDL CHOLESTEROL 51 MG/DL (<100); NON-HDL-C 68 MG/DL; POTASSIUM SERUM 3.7 MEQ/L (3.5-5.1); SODIUM LEVEL 137 MEQ/L (136-145); TOTAL PROTEIN 7.3 GM/DL (6.4-8.2); TRIGLYCERIDES LEVEL 87 MG/DL (<150)
== END ==
LOC: M WUC 10:26
PROVIDERS: ATTEND Nurse Practitioner Family
DX: I25.10 Atherosclerotic heart disease of native coronary artery without angina pectoris (principal); E78.49 Other hyperlipidemia

== ENCOUNTER → 2022-05-11 | Outpatient (CLI) | payer MEDICARE, OTHER ==
[2022-05-11 17:01] LABS: BASO % 0.9 % (0.0-1.0); EOS # 0.4 10^3/uL (0.0-0.5); EOS % 7.7 % (0.0-3.0); HEMATOCRIT 41.6 % (42.0-52.0); HEMOGLOBIN 13.7 g/dl (13.5-17.5); LYMPH % 22.6 % (24.0-44.0); MEAN CORPUSCULAR HEMOGLOBIN 32.2 pg (27.0-33.0); MEAN CORPUSCULAR HGB CONC 32.9 g/dl (32.0-36.5); MEAN CORPUSCULAR VOLUME 97.9 fl (80.0-96.0); MONO # 0.7 10^3/uL (0.0-0.8); MONO % 15.8 % (2.0-8.0); NEUTROPHILS # 2.4 10^3/uL (1.5-8.5); NEUTROPHILS % 52.6 % (36.0-66.0); PLATELET COUNT, AUTOMATED 177 10^3/uL (150-450); RED BLOOD COUNT 4.25 10^6/uL (4.30-6.10); WHITE BLOOD COUNT 4.6 10^3/uL (4.0-10.0)
[2022-05-11 17:29] LABS: ALKALINE PHOSPHATASE 55 U/L (46-116); ALT/SGPT 15 U/L (7.0-40); AST/SGOT 22 U/L (<34); BILIRUBIN,TOTAL 0.6 MG/DL (0.3-1.2); BLOOD UREA NITROGEN 20 MG/DL (9-23); CARBON DIOXIDE LEVEL 32 MMOL/L (20-31); CHLORIDE LEVEL 103 MMOL/L (98-107); CHOLESTEROL LEVEL 127 MG/DL (<200); CHOLESTEROL RISK RATIO 1.97 (<5); CREATININE FOR GFR 0.93 MG/DL (0.70-1.30); GLOMERULAR FILTRATION RATE > 60.0 (>35); GLUCOSE, FASTING 109 MG/DL (74-106); HDL CHOLESTEROL 64.2 MG/DL (>40); LDL CHOLESTEROL 47.2 MG/DL (<100); NON-HDL-C 62.8 MG/DL; POTASSIUM SERUM 3.7 MMOL/L (3.5-5.1); SODIUM LEVEL 141 MMOL/L (136-145); TOTAL PROTEIN 6.8 G/DL (5.7-8.2); TRIGLYCERIDES LEVEL 78 MG/DL (<150)
[2022-05-13 08:09] LABS: LDL DIRECT 45 mg/dL (0-99)
== END ==
LOC: M WUC 11:44
PROVIDERS: ATTEND Nurse Practitioner Family
DX: I25.10 Atherosclerotic heart disease of native coronary artery without angina pectoris (principal); E78.5 Hyperlipidemia, unspecified

== ENCOUNTER → 2022-11-21 | Outpatient (CLI) | payer MEDICARE, OTHER ==
[2022-11-21 13:03] LABS: HEMOGLOBIN 13.9 g/dl (13.5-17.5); MEAN CORPUSCULAR HEMOGLOBIN 33.7 pg (27.0-33.0); MEAN CORPUSCULAR HGB CONC 33.9 g/dl (32.0-36.5); MEAN CORPUSCULAR VOLUME 99.5 fl (80.0-96.0); PLATELET COUNT, AUTOMATED 180 10^3/uL (150-450); RED BLOOD COUNT 4.12 10^6/uL (4.30-6.10); WHITE BLOOD COUNT 3.7 10^3/uL (4.0-10.0)
[2022-11-21 13:40] LABS: ALBUMIN 4.1 G/DL (3.2-5.2); ALKALINE PHOSPHATASE 44 U/L (46-116); ALT/SGPT 23 U/L (7.0-40); AST/SGOT 27 U/L (<34); BILIRUBIN,TOTAL 0.6 MG/DL (0.3-1.2); BLOOD UREA NITROGEN 20 MG/DL (9-23); CALCIUM LEVEL 9.2 MG/DL (8.3-10.6); CARBON DIOXIDE LEVEL 32 MMOL/L (20-31); CHLORIDE LEVEL 105 MMOL/L (98-107); CHOLESTEROL LEVEL 138 MG/DL (<200); CHOLESTEROL RISK RATIO 2.01 (<5); GLOMERULAR FILTRATION RATE > 60.0 (>35); GLUCOSE, FASTING 120 MG/DL (74-106); HDL CHOLESTEROL 68.4 MG/DL (>40); LDL CHOLESTEROL 56.6 MG/DL (<100); NON-HDL-C 69.6 MG/DL; POTASSIUM SERUM 4.4 MMOL/L (3.5-5.1); SODIUM LEVEL 141 MMOL/L (136-145); TOTAL PROTEIN 6.8 G/DL (5.7-8.2); TRIGLYCERIDES LEVEL 65 MG/DL (<150)
== END ==
LOC: M WUC 08:58
PROVIDERS: ATTEND Nurse Practitioner Family
DX: I25.10 Atherosclerotic heart disease of native coronary artery without angina pectoris (principal); E78.2 Mixed hyperlipidemia

== ENCOUNTER → 2023-04-19 | Outpatient (CLI) | payer MEDICARE, OTHER ==
[2023-04-19 12:59] LABS: APPEARANCE, URINE CLEAR (CLEAR); BACTERIA, URINE AUTO NEGATIVE (NEGATIVE); BILIRUBIN, URINE AUTO NEGATIVE (NEGATIVE); BLOOD, URINE BLOOD NEGATIVE (NEGATIVE); COLOR, URINE YELLOW (YELLOW); GLUCOSE, URINE (UA) AUTO NEGATIVE (NEGATIVE); KETONE, URINE AUTO NEGATIVE (NEGATIVE); LEUKOCYTE ESTERASE, URINE AUTO NEGATIVE (NEGATIVE); MUCUS, URINE SMALL (NEGATIVE); NITRITE, URINE AUTO NEGATIVE (NEGATIVE); PROTEIN, URINE AUTO 1+ mg/dL (NEGATIVE); RBC, URINE AUTO 0 /HPF (0-3); SPECIFIC GRAVITY URINE AUTO 1.029 (1.002-1.035); SQUAMOUS EPITHELIAL CELL UR AU 0 /HPF (0-6); UROBILINOGEN, URINE AUTO 0.2 mg/dL (0.0-2.0); WBC, URINE AUTO 0 /HPF (0-3)
[2023-04-19 13:01] LABS: BASO % 0.8 % (0.0-1.0); EOS # 0.4 10^3/uL (0.0-0.5); EOS % 9.3 % (0.0-3.0); HEMATOCRIT 41.9 % (42.0-52.0); HEMOGLOBIN 13.8 g/dl (13.5-17.5); LYMPH # 1.1 10^3/uL (1.5-5.0); LYMPH % 26.3 % (24.0-44.0); MEAN CORPUSCULAR HEMOGLOBIN 32.3 pg (27.0-33.0); MEAN CORPUSCULAR HGB CONC 32.9 g/dl (32.0-36.5); MEAN CORPUSCULAR VOLUME 98.1 fl (80.0-96.0); MONO # 0.5 10^3/uL (0.0-0.8); MONO % 11.3 % (2.0-8.0); NEUTROPHILS # 2.1 10^3/uL (1.5-8.5); NEUTROPHILS % 51.8 % (36.0-66.0); PLATELET COUNT, AUTOMATED 185 10^3/uL (150-450); RED BLOOD COUNT 4.27 10^6/uL (4.30-6.10)
[2023-04-19 13:29] LABS: HEMOGLOBIN A1c 5.4 % (4.0-6.0); PSA SCREENING 3.09 NG/ML (< 4.00)
[2023-04-19 13:34] LABS: THYROID STIMULATING HORMONE 2.555 uIU/ML (0.55-4.78)
[2023-04-19 13:35] LABS: ALBUMIN 3.9 G/DL (3.2-5.2); ALKALINE PHOSPHATASE 45 U/L (46-116); ALT/SGPT 19 U/L (7.0-40); AST/SGOT 26 U/L (<34); BILIRUBIN,TOTAL 0.6 MG/DL (0.3-1.2); BLOOD UREA NITROGEN 26 MG/DL (9-23); CALCIUM LEVEL 9.1 MG/DL (8.3-10.6); CARBON DIOXIDE LEVEL 29 MMOL/L (20-31); CHLORIDE LEVEL 108 MMOL/L (98-107); CREATININE FOR GFR 0.91 MG/DL (0.70-1.30); GLOMERULAR FILTRATION RATE > 60.0 (>35); GLUCOSE, FASTING 101 MG/DL (74-106); POTASSIUM SERUM 4.2 MMOL/L (3.5-5.1); SODIUM LEVEL 144 MMOL/L (136-145); TOTAL PROTEIN 6.8 G/DL (5.7-8.2)
== END ==
LOC: M WUC 09:08
PROVIDERS: ATTEND Physician Assistant
DX: R35.0 Frequency of micturition (principal); Z79.899 Other long term (current) drug therapy; Z12.5 Encounter for screening for malignant neoplasm of prostate
CPT/HCPCS: 36415; 80053; 81001; 83036; 84443; 85025; 87086; G0103

== ENCOUNTER → 2023-06-27 | Outpatient (CLI) | payer MEDICARE, OTHER ==
[2023-06-27 14:14] LABS: BASO % 0.7 % (0.0-1.0); EOS # 0.2 10^3/uL (0.0-0.5); HEMATOCRIT 41.6 % (42.0-52.0); LYMPH # 1.2 10^3/uL (1.5-5.0); LYMPH % 28.3 % (24.0-44.0); MEAN CORPUSCULAR HEMOGLOBIN 32.8 pg (27.0-33.0); MEAN CORPUSCULAR HGB CONC 33.7 g/dl (32.0-36.5); MEAN CORPUSCULAR VOLUME 97.4 fl (80.0-96.0); MONO # 0.5 10^3/uL (0.0-0.8); MONO % 12.7 % (2.0-8.0); NEUTROPHILS # 2.2 10^3/uL (1.5-8.5); NEUTROPHILS % 52.8 % (36.0-66.0); PLATELET COUNT, AUTOMATED 181 10^3/uL (150-450); RED BLOOD COUNT 4.27 10^6/uL (4.30-6.10); WHITE BLOOD COUNT 4.2 10^3/uL (4.0-10.0)
[2023-06-27 14:19] LABS: ALBUMIN 4.1 G/DL (3.2-5.2); ALKALINE PHOSPHATASE 48 U/L (46-116); ALT/SGPT 21 U/L (7.0-40); AST/SGOT 22 U/L (<34); BILIRUBIN,TOTAL 0.6 MG/DL (0.3-1.2); BLOOD UREA NITROGEN 22 MG/DL (9-23); CARBON DIOXIDE LEVEL 31 MMOL/L (20-31); CHLORIDE LEVEL 104 MMOL/L (98-107); CHOLESTEROL LEVEL 155 MG/DL (<200); CHOLESTEROL RISK RATIO 2.16 (<5); CREATININE FOR GFR 0.96 MG/DL (0.70-1.30); GLOMERULAR FILTRATION RATE > 60.0 (>35); GLUCOSE, FASTING 90 MG/DL (74-106); HDL CHOLESTEROL 71.7 MG/DL (>40); LDL CHOLESTEROL 69.7 MG/DL (<100); NON-HDL-C 83.3 MG/DL; POTASSIUM SERUM 4.3 MMOL/L (3.5-5.1); SODIUM LEVEL 141 MMOL/L (136-145); TOTAL PROTEIN 6.6 G/DL (5.7-8.2); TRIGLYCERIDES LEVEL 68 MG/DL (<150)
== END ==
LOC: M WUC 09:01
PROVIDERS: ATTEND Nurse Practitioner Family
DX: E78.2 Mixed hyperlipidemia (principal); I10 Essential (primary) hypertension; I25.10 Atherosclerotic heart disease of native coronary artery without angina pectoris

== ENCOUNTER → 2023-08-14 | Outpatient (CLI) | payer MEDICARE, OTHER ==
[2023-08-14 10:39] LABS: BASO % 0.7 % (0.0-1.0); EOS # 0.2 10^3/uL (0.0-0.5); EOS % 3.8 % (0.0-3.0); HEMATOCRIT 41.3 % (42.0-52.0); HEMOGLOBIN 13.8 g/dl (13.5-17.5); LYMPH # 1.1 10^3/uL (1.5-5.0); LYMPH % 23.5 % (24.0-44.0); MEAN CORPUSCULAR HGB CONC 33.4 g/dl (32.0-36.5); MEAN CORPUSCULAR VOLUME 98.8 fl (80.0-96.0); MONO # 0.6 10^3/uL (0.0-0.8); MONO % 12.6 % (2.0-8.0); NEUTROPHILS # 2.7 10^3/uL (1.5-8.5); PLATELET COUNT, AUTOMATED 161 10^3/uL (150-450); RED BLOOD COUNT 4.18 10^6/uL (4.30-6.10); WHITE BLOOD COUNT 4.5 10^3/uL (4.0-10.0)
[2023-08-14 11:09] LABS: IRON (FE) 140 UG/DL (65-175); PERCENT SATURATION 45.3 % (19.7-50.0); TOTAL IRON BINDING CAPACITY 309 UG/DL (250-425)
[2023-08-14 11:11] LABS: ALBUMIN 4.1 G/DL (3.2-5.2); ALKALINE PHOSPHATASE 51 U/L (46-116); ALT/SGPT 19 U/L (7.0-40); AST/SGOT 20 U/L (<34); BILIRUBIN,TOTAL 0.9 MG/DL (0.3-1.2); BLOOD UREA NITROGEN 27 MG/DL (9-23); CALCIUM LEVEL 9.1 MG/DL (8.3-10.6); CARBON DIOXIDE LEVEL 31 MMOL/L (20-31); CHLORIDE LEVEL 106 MMOL/L (98-107); CREATININE FOR GFR 0.95 MG/DL (0.70-1.30); GLOMERULAR FILTRATION RATE > 60.0 (>35); GLUCOSE, FASTING 101 MG/DL (74-106); POTASSIUM SERUM 3.8 MMOL/L (3.5-5.1); SODIUM LEVEL 141 MMOL/L (136-145); TOTAL PROTEIN 6.7 G/DL (5.7-8.2)
[2023-08-14 11:13] LABS: FERRITIN 139.8 NG/ML (10.5-307.3); FREE T4 1.03 NG/DL (0.89-1.76); THYROID STIMULATING HORMONE 2.305 uIU/ML (0.55-4.78)
[2023-08-14 11:14] LABS: VITAMIN B12 LEVEL 384 PG/ML (211-911)
[2023-08-17 20:47] LABS: VITAMIN A, RETINOL LEVEL 78 mcg/dL (38-98)
[2023-08-18 04:28] LABS: 25-HYDROXY VITAMIN D2 < 8 pg/mL; 25-HYDROXY VITAMIN D3 45 pg/mL; VITAMIN D 1 25 DIHYDROXY 45 pg/mL (18-72)
[2023-08-18 15:32] LABS: VITAMIN B6,PYRIDOXAL PHOSPHATE 7.7 ng/mL (2.1-21.7)
== END ==
LOC: M WUC 08:42
PROVIDERS: ATTEND Physician Assistant
DX: L73.9 Follicular disorder, unspecified (principal); Z79.899 Other long term (current) drug therapy; L29.9 Pruritus, unspecified; L57.8 Other skin changes due to chronic exposure to nonionizing radiation; E55.9 Vitamin D deficiency, unspecified

== ENCOUNTER → 2023-10-30 | Outpatient (REF) | LOC: M PLAIMG 08:43 | PROVIDERS: ATTEND Internal Medicine | DX: R06.02 Shortness of breath (principal) ==

== ENCOUNTER → 2023-12-12 | Outpatient (CLI) | payer MEDICARE, OTHER ==
[2023-12-12 11:53] LABS: BASO % 0.7 % (0.0-1.0); EOS # 0.2 10^3/uL (0.0-0.5); EOS % 3.5 % (0.0-3.0); HEMATOCRIT 39.9 % (42.0-52.0); HEMOGLOBIN 13.3 g/dl (13.5-17.5); LYMPH # 1.1 10^3/uL (1.5-5.0); LYMPH % 23.6 % (24.0-44.0); MEAN CORPUSCULAR HEMOGLOBIN 32.6 pg (27.0-33.0); MEAN CORPUSCULAR HGB CONC 33.3 g/dl (32.0-36.5); MEAN CORPUSCULAR VOLUME 97.8 fl (80.0-96.0); MONO # 0.6 10^3/uL (0.0-0.8); MONO % 13.6 % (2.0-8.0); NEUTROPHILS # 2.7 10^3/uL (1.5-8.5); NEUTROPHILS % 58.4 % (36.0-66.0); PLATELET COUNT, AUTOMATED 172 10^3/uL (150-450); RED BLOOD COUNT 4.08 10^6/uL (4.30-6.10); WHITE BLOOD COUNT 4.6 10^3/uL (4.0-10.0)
[2023-12-12 12:21] LABS: ALBUMIN 4.1 G/DL (3.2-5.2); ALKALINE PHOSPHATASE 53 U/L (46-116); ALT/SGPT 27 U/L (7.0-40); AST/SGOT 26 U/L (<34); BILIRUBIN,TOTAL 0.9 MG/DL (0.3-1.2); BLOOD UREA NITROGEN 20 MG/DL (9-23); CALCIUM LEVEL 9.3 MG/DL (8.3-10.6); CARBON DIOXIDE LEVEL 30 MMOL/L (20-31); CHLORIDE LEVEL 106 MMOL/L (98-107); CHOLESTEROL LEVEL 142 MG/DL (<200); CHOLESTEROL RISK RATIO 1.81 (<5); GLOMERULAR FILTRATION RATE > 60.0 (>35); GLUCOSE, FASTING 99 MG/DL (74-106); HDL CHOLESTEROL 78.3 MG/DL (>40); LDL CHOLESTEROL 50.5 MG/DL (<100); NON-HDL-C 63.7 MG/DL; POTASSIUM SERUM 3.8 MMOL/L (3.5-5.1); PSA SCREENING 2.89 NG/ML (< 4.00); SODIUM LEVEL 140 MMOL/L (136-145); THYROID STIMULATING HORMONE 1.734 uIU/ML (0.55-4.78); TOTAL PROTEIN 7.3 G/DL (5.7-8.2); TRIGLYCERIDES LEVEL 66 MG/DL (<150)
[2023-12-12 13:04] LABS: IRON (FE) 102 UG/DL (65-175); TOTAL IRON BINDING CAPACITY 309 UG/DL (250-425)
[2023-12-12 13:07] LABS: FERRITIN 105.1 NG/ML (10.5-307.3); VITAMIN B12 LEVEL 471 PG/ML (211-911)
== END ==
LOC: M WUC 10:03
PROVIDERS: ATTEND Internal Medicine
DX: D50.9 Iron deficiency anemia, unspecified (principal); Z12.5 Encounter for screening for malignant neoplasm of prostate; E78.5 Hyperlipidemia, unspecified
CPT/HCPCS: 36415; 80053; 80061; 82607; 82728; 83550; 84443; 85025; G0103

== ENCOUNTER → 2024-03-26 | Outpatient (CLI) | payer MEDICARE, OTHER ==
[2024-03-26 15:22] LABS: BASO % 0.5 % (0.0-1.0); EOS # 0.2 10^3/uL (0.0-0.5); EOS % 3.7 % (0.0-3.0); HEMATOCRIT 39.7 % (42.0-52.0); HEMOGLOBIN 13.7 g/dl (13.5-17.5); LYMPH # 1.1 10^3/uL (1.5-5.0); LYMPH % 17.6 % (24.0-44.0); MEAN CORPUSCULAR HEMOGLOBIN 33.1 pg (27.0-33.0); MEAN CORPUSCULAR HGB CONC 34.5 g/dl (32.0-36.5); MEAN CORPUSCULAR VOLUME 95.9 fl (80.0-96.0); MONO # 0.7 10^3/uL (0.0-0.8); MONO % 10.3 % (2.0-8.0); NEUTROPHILS # 4.3 10^3/uL (1.5-8.5); NEUTROPHILS % 67.4 % (36.0-66.0); PLATELET COUNT, AUTOMATED 169 10^3/uL (150-450); RED BLOOD COUNT 4.14 10^6/uL (4.30-6.10); WHITE BLOOD COUNT 6.4 10^3/uL (4.0-10.0)
[2024-03-26 15:54] LABS: ALKALINE PHOSPHATASE 58 U/L (40-129); ALT/SGPT 22 U/L (7.0-40); AST/SGOT 27 U/L (<34); BILIRUBIN,TOTAL 0.6 MG/DL (0.3-1.2); BLOOD UREA NITROGEN 21 MG/DL (9-23); CALCIUM LEVEL 9.1 MG/DL (8.3-10.6); CARBON DIOXIDE LEVEL 30 MMOL/L (20-31); CHLORIDE LEVEL 102 MMOL/L (98-107); CHOLESTEROL LEVEL 118 MG/DL (<200); CHOLESTEROL RISK RATIO 2.36 (<5); CREATININE FOR GFR 1.02 MG/DL (0.70-1.30); GLOMERULAR FILTRATION RATE > 60.0 (>35); GLUCOSE, FASTING 88 MG/DL (74-106); LDL CHOLESTEROL 43.2 MG/DL (<100); POTASSIUM SERUM 3.9 MMOL/L (3.5-5.1); SODIUM LEVEL 143 MMOL/L (136-145); TOTAL PROTEIN 7.3 G/DL (5.7-8.2); TRIGLYCERIDES LEVEL 124 MG/DL (<150)
== END ==
LOC: M PLALAB 14:00
PROVIDERS: ATTEND Nurse Practitioner Family
DX: I25.10 Atherosclerotic heart disease of native coronary artery without angina pectoris (principal); E78.2 Mixed hyperlipidemia; I10 Essential (primary) hypertension

== ENCOUNTER → 2024-04-18 | Outpatient (REF) | payer MEDICARE, OTHER | LOC: M LAB REF 16:21 | PROVIDERS: ATTEND Student in an Organized Health Care Education/Training Program | DX: R30.0 Dysuria (principal) ==

== ENCOUNTER → 2024-04-22 | Outpatient (CLI) | payer MEDICARE, OTHER ==
[2024-04-22 17:39] LABS: BLOOD UREA NITROGEN 19 MG/DL (9-23); CALCIUM LEVEL 9.2 MG/DL (8.3-10.6); CARBON DIOXIDE LEVEL 31 MMOL/L (20-31); CHLORIDE LEVEL 102 MMOL/L (98-107); CREATININE FOR GFR 0.88 MG/DL (0.70-1.30); GLOMERULAR FILTRATION RATE > 60.0 (>35); GLUCOSE, FASTING 106 MG/DL (74-106); POTASSIUM SERUM 3.9 MMOL/L (3.5-5.1); SODIUM LEVEL 141 MMOL/L (136-145)
== END ==
LOC: M WUC 13:00
PROVIDERS: ATTEND Internal Medicine
DX: E78.5 Hyperlipidemia, unspecified (principal); R39.198 Other difficulties with micturition; R10.32 Left lower quadrant pain

== ENCOUNTER → 2024-10-15 | Outpatient (REF) | payer MEDICARE, OTHER ==
[2024-10-15 15:02] LABS: PLATELET COUNT, AUTOMATED 168 10^3/uL (150-450)
[2024-10-15 15:20] LABS: ALT/SGPT 19.0 U/L (7.0-40); AST/SGOT 25.0 U/L (<34); CALCIUM LEVEL 9.1 MG/DL (8.3-10.6); CARBON DIOXIDE LEVEL 31.0 MMOL/L (20-31); CHLORIDE LEVEL 106.0 MMOL/L (98-107); CHOLESTEROL LEVEL 147.0 MG/DL (<200); CHOLESTEROL RISK RATIO 2.08 (<5); CREATININE FOR GFR 0.87 MG/DL (0.70-1.30); GLOMERULAR FILTRATION RATE 85.6 (>35); LDL CHOLESTEROL 55.3 MG/DL (<100); NON-HDL-C 76.5 MG/DL; POTASSIUM SERUM 4.3 MMOL/L (3.5-5.1); SODIUM LEVEL 144.0 MMOL/L (136-145); TRIGLYCERIDES LEVEL 106.0 MG/DL (<150)
== END ==
LOC: M LABWUC 14:10
PROVIDERS: ATTEND Nurse Practitioner Family
DX: I25.10 Atherosclerotic heart disease of native coronary artery without angina pectoris (principal); I10 Essential (primary) hypertension

== ENCOUNTER → 2024-12-27 | Outpatient (CLI) | payer MEDICARE, OTHER ==
[2024-12-27 14:57] LABS: BASO # 0.0 10^3/uL (0.0-0.2); BASO % 0.5 % (0.0-1.0); EOS # 0.2 10^3/uL (0.0-0.5); EOS % 4.0 % (0.0-3.0); LYMPH # 0.9 10^3/uL (1.5-5.0); LYMPH % 16.2 % (24.0-44.0); MONO # 0.7 10^3/uL (0.0-0.8); MONO % 11.4 % (2.0-8.0); NEUTROPHILS # 3.9 10^3/uL (1.5-8.5); NEUTROPHILS % 67.4 % (36.0-66.0); PLATELET COUNT, AUTOMATED 181 10^3/uL (150-450)
[2024-12-27 15:04] LABS: ALT/SGPT 43.0 U/L (7.0-40); AST/SGOT 44.0 U/L (<34); CALCIUM LEVEL 9.3 MG/DL (8.3-10.6); CARBON DIOXIDE LEVEL 34.0 MMOL/L (20-31); CHLORIDE LEVEL 101.0 MMOL/L (98-107); CHOLESTEROL LEVEL 145.0 MG/DL (<200); CHOLESTEROL RISK RATIO 1.91 (<5); CREATININE FOR GFR 1.05 MG/DL (0.70-1.30); GLOMERULAR FILTRATION RATE 70.4 (>35); LDL CHOLESTEROL 47.3 MG/DL (<100); MAGNESIUM LEVEL 2.1 MG/DL (1.8-2.4); NON-HDL-C 69.3 MG/DL; POTASSIUM SERUM 4.1 MMOL/L (3.5-5.1); SODIUM LEVEL 143.0 MMOL/L (136-145); TRIGLYCERIDES LEVEL 110.0 MG/DL (<150)
== END ==
LOC: M WUC 11:13
PROVIDERS: ATTEND Internal Medicine
DX: I10 Essential (primary) hypertension (principal); E78.5 Hyperlipidemia, unspecified